=== PATIENT | male | born 1985 | race Caucasian/White ===

== ENCOUNTER → 2020-06-20 | Outpatient (CLI) | payer SELFPAY | LOC: M LABSMTC 12:46 | PROVIDERS: ATTEND Pediatrics | DX: Z20.822 Contact with and (suspected) exposure to COVID-19 (principal) ==

== ENCOUNTER 2020-09-17 10:38 | Day surgery (SDC) | payer OTHER ==
[~2020-09-17] VITALS: Ht 188 cm; Wt 100.3 kg
[~2020-09-17 10:38] MED LIST: LR 1,000 ML IV ONE; VALA500T5 PO
[2020-09-17] MEDS ORDERED: MULT1TAB8 PO (11:02)
[2020-09-17] MEDS ORDERED: FISH1000 PO (11:02)
[2020-09-17] MEDS ORDERED: CIDA500T2 PO (11:02)
[2020-09-17] MEDS ORDERED: LIDOCAINE W/EPINEPHRINE 1% 20ML VIAL As Ordered ONE (12:40)
[2020-09-17] MEDS ORDERED: METHYLENE BLUE 0.5% (5MG/ML) 10 ML AMP (PROVAYBLUE) As Ordered ONE (12:40)
[2020-09-17] MEDS ORDERED: EPINEPHrine 1MG/ML INJ 30ML MD-VIAL As Ordered ONE (12:40)
[2020-09-17] MEDS ORDERED: ONDANSETRON 4MG/2ML VIAL As Ordered ONE (12:45)
[2020-09-17] MEDS ORDERED: dexameTHASONE 4 MG/ML 1ML VIAL (J1100 PER 1MG) As Ordered ONE (12:45)
[2020-09-17] MEDS ORDERED: propofoL 200 MG/20 ML VIAL As Ordered ONE (12:45)
[2020-09-17] MEDS ORDERED: fentaNYL 100 MCG/2 ML INJECTION (J3010) As Ordered ONE ×2 (12:45→13:21)
[2020-09-17] MEDS ORDERED: ROCURONIUM BROMIDE 50 MG/5 ML VIAL As Ordered ONE (12:45)
[2020-09-17] MEDS ORDERED: MIDAZOLAM INJ 2MG/2ML VIAL (J2250 PER 1MG) As Ordered ONE (12:45)
[2020-09-17] MEDS ORDERED: LIDOCAINE 2% 100MG/5ML SDV (FOR ANES.) As Ordered ONE (12:45)
[2020-09-17] MEDS ORDERED: SUGAMMADEX SODIUM 500 MG/5 ML VIAL (BRIDION) As Ordered ONE (13:21)
[2020-09-17] MEDS ORDERED: MEPERIDINE INJ 25 MG/ML VIAL (J2175) IV PRN (13:55)
[2020-09-17] MEDS ORDERED: ONDANSETRON 4MG/2ML VIAL IV PRN (13:55)
[2020-09-17] MEDS ORDERED: fentaNYL 100 MCG/2 ML INJECTION (J3010) IV PRN (13:55)
[2020-09-17] MEDS ORDERED: ACETAMINOPH W/CODEINE #3 TAB UD PO PRN (13:55)
[2020-09-17] MEDS ORDERED: oxyCODONE 5MG TAB PO PRN (13:55)
[2020-09-17] MEDS ORDERED: LR 1,000 ML IV SCH (14:00)
[2020-09-17 15:00] VITALS: BP 134/75
--- NOTE | 2020-09-17 15:06 | RO ---
OPERATIVE NOTE DATE OF OPERATION: 09/17/2020 PREOPERATIVE DIAGNOSIS: Nasal septal deviation. POSTOPERATIVE DIAGNOSIS: Nasal septal deviation. PROCEDURE: Septoplasty. SURGEON: Dr. Junior Tucker DESCRIPTION OF PROCEDURE: Under general anesthesia with the patient intubated, the patient was draped in the usual manner. I used pledgets of adrenaline 1:100,000 and infiltrated with lidocaine with epinephrine. I started by making an incision in the left side. I elevated a subperichondral/periosteal plane. I the quadrangular cartilage from the ethmoid plate and maxillary crest and then removed portions of bone which were deviated. Once this was done, the septum was straight. I closed that incision with 4-0 Monocryl and 4-0 chromic suture. Patient tolerated the procedure well and was extubated and transferred to the recovery room in excellent condition.
== END 2020-09-17 15:06 | disposition home or self-care (01) ==
LOC: M SDC 10:38
PROVIDERS: ATTEND Otolaryngology
DX: J34.2 Deviated nasal septum (principal); Z87.891 Personal history of nicotine dependence; Z79.899 Other long term (current) drug therapy
CPT/HCPCS: 30520; J1100; J2250; J2405; J3010; Q9968